=== PATIENT | female | born 1995 | race Caucasian/White ===

== ENCOUNTER 2021-06-09 11:19 | Inpatient (IN) | payer BC, OTHER ==
[2021-06-09 11:28] VITALS: BMI 30.7
[2021-06-09 12:25] LABS: Fetal Membranes Rupture RUPTURE DETECTED (No Rupture)
[2021-06-09] MEDS ORDERED: Lidocaine 1% (PF) 30 ML VIAL SC PRN (13:19)
[2021-06-09] MEDS ORDERED: Butorphanol Tartrate 1 MG/ML VIAL SLOW IVP PRN (13:19)
[2021-06-09] MEDS ORDERED: Carboprost 250 MCG/ML AMP IM PRN (13:19)
[2021-06-09] MEDS ORDERED: Acetaminophen 500 MG TAB PO PRN (13:19)
[2021-06-09] MEDS ORDERED: hydrALAZINE 20 MG/ML VIAL SLOW IVP PRN (13:19)
[2021-06-09] MEDS ORDERED: Promethazine HCl 25 MG/ML VIAL IM PRN (13:19)
[2021-06-09] MEDS ORDERED: HYDROcodone/Acetaminophen 5/325 mg Tablet PO PRN ×2 (13:19)
[2021-06-09] MEDS ORDERED: Diphenoxylate HCl/Atropine Tablet PO PRN (13:19)
[2021-06-09] MEDS ORDERED: Ondansetron PF 4 MG/2 ML Vial IVP PRN (13:19)
[2021-06-09] MEDS ORDERED: Misoprostol 200 MCG TAB PR PRN (13:19)
[2021-06-09] MEDS ORDERED: Ibuprofen 800 MG TAB PO PRN (13:19)
[2021-06-09] MEDS ORDERED: Methylergonovine 0.2 MG/ML VIAL IM PRN (13:19)
[2021-06-09] MEDS ORDERED: Lactated Ringer's 1,000 ML IV SCH (13:30)
[2021-06-09] MEDS ORDERED: NS w/ Oxytocin 30 units 500 ML IV SCH ×2 (13:30)
[2021-06-09 14:03] LABS: Hemoglobin 11.7 g/dL (12.0-15.5); Mean Corpuscular HGB CONC 33.3 g/dL (32.0-36.0); Mean Corpuscular Hemoglobin 28.3 pg (27.0-33.0); Mean Corpuscular Volume 84.8 fl (81.6-98.3); Mean Platelet Volume 12.5 fl (7.4-10.4); Platelet Count 240 10x3/uL (150-450); RBC Distribution Width 12.5 % (11.5-14.5); Red Blood Cell (RBC) Count 4.14 10x6/uL (3.90-5.03); White Blood Cell (WBC) Count 12.2 10x3/uL (3.5-10.5)
[2021-06-09 14:42] LABS: Hep B Surf Ag Non-Reactive S/CO (NonReactive); Syphilis Antibody Nonreactive (Nonreactive); Syphilis Antibody Index 0.04 S/CO (<1.00 Non-Reactive)
[2021-06-09 14:48] LABS: SARS-CoV-2 NAA Rapid Test Not Detected (NotDetected)
[2021-06-09 14:52] LABS: HBSAg Index 0.16 S/CO (0-0.99)
[2021-06-10] MEDS ORDERED: Misoprostol 200 MCG TAB VAG PRN (11:04)
[2021-06-10] MEDS ORDERED: Bisacodyl 10 MG SUPP PR PRN (11:04)
[2021-06-10] MEDS ORDERED: Milk Of Magnesia 30 ML UDCUP PO PRN (11:04)
[2021-06-10] MEDS ORDERED: HYDROcodone/Acetaminophen 5/325 mg Tablet PO PRN ×2 (11:04)
[2021-06-10] MEDS ORDERED: hydrALAZINE 20 MG/ML VIAL SLOW IVP PRN (11:04)
[2021-06-10] MEDS ORDERED: Benzocaine-Menthol 82.5 ML CAN TOP PRN (11:04)
[2021-06-10] MEDS ORDERED: Methylergonovine 0.2 MG/ML VIAL IM PRN (11:04)
[2021-06-10] MEDS ORDERED: Ondansetron PF 4 MG/2 ML Vial IVP PRN (11:04)
[2021-06-10] MEDS ORDERED: NS w/ Oxytocin 30 units 500 ML IV SCH (11:04)
[2021-06-10] MEDS: Ibuprofen 800 MG TAB PO SCH ×2 (13:24→21:49)
[2021-06-10] MEDS: Ferrous Sulfate 325 MG TAB PO SCH (16:43)
[2021-06-10] MEDS: Docusate 100 MG CAP PO SCH (21:49)
[2021-06-11] MEDS: Ibuprofen 800 MG TAB PO SCH ×2 (06:47→13:42)
[2021-06-11] MEDS: Ferrous Sulfate 325 MG TAB PO SCH ×2 (07:54→15:25)
[2021-06-11] MEDS: Docusate 100 MG CAP PO SCH (08:03)
[2021-06-11 09:27] VITALS: BP 109/72; TEMP 97.6
== END 2021-06-11 15:50 | disposition home or self-care (01) | DRG 807 ==
LOC: CSHLD/OP 11:19 → CSHLD 13:45 → CSHPP 06-10 10:45
PROVIDERS: ADMIT Obstetrics & Gynecology; ATTEND Obstetrics & Gynecology
PROC: 10E0XZZ Delivery of Products of Conception, External Approach (ICD-10-PCS; principal; 2021-06-10)
PROC: 0KQM0ZZ Repair Perineum Muscle, Open Approach (ICD-10-PCS; 2021-06-10)
DX: O42.02 Full-term premature rupture of membranes, onset of labor within 24 hours of rupture (principal); Z37.0 Single live birth; Z3A.39 39 weeks gestation of pregnancy; Z20.822 Contact with and (suspected) exposure to COVID-19; O70.1 Second degree perineal laceration during delivery
CPT/HCPCS: 36415; 84112; 85027; 86780; 86850; 86900; 86901; 87340; U0002